=== PATIENT | female | born 1980 | race American Indian/Alaskan Native ===

== ENCOUNTER 2018-04-18 16:05 | Emergency (ER) | payer SELFPAY ==
[2018-04-18 16:45] VITALS: BP 120/81
[2018-04-18 18:27] LABS: Bilirubin,Urine NEG (Negative); Blood,Urine LG (Negative); Color,Urine Yellow (Yellow); Mucus,Urine FEW /HPF; Protein,Urine <15 mg/dL mg/dL (Negative); Urobilinogen,Urine < 2.0 mg/dL (<2.0)
[2018-04-18 18:31] LABS: RBC,Urine > 182.0 /HPF (0.0-6.0)
[2018-04-18 18:36] LABS: HCG Qualitative,Urine Negative (Negative)
== END 2018-04-18 17:18 | disposition left against medical advice (07) ==
LOC: ED 16:05
DX: I10 Essential (primary) hypertension (principal); Z53.21 Procedure and treatment not carried out due to patient leaving prior to being seen by health care provider
CPT/HCPCS: 81001; 81025; 82962; 93005; 93010